=== PATIENT | female | born 2000 | race Caucasian/White ===

== ENCOUNTER 2020-09-14 14:53 | Emergency (ER) | payer OTHER, SELFPAY ==
--- NOTE | 2020-09-14 14:56 | ED.SKABFB ---
HPI - Skin/Abscess/Foreign Bdy General Chief complaint: Wound/Laceration Stated complaint: left toenail off Time Seen by Provider: 09/14/20 14:57 Source: patient and RN notes reviewed History of Present Illness HPI narrative: Patient is a 19-year-old female who presents the urgent care with complaints of left toenail pain. Patient states that her great toenails do not grow the same way and she became self-conscious about them and there for applied acrylic nail to her toes . Patient states that she ripped off the acrylic nail on the left great toe this morning and is now having pain. Patient states that she wants the acrylic taken off the right great toe. Patient denies of any fevers, redness, swelling to the toes. No other acute complaints. No acute distress noted. Patient aware of the plan of care. Some parts of this dictation were generated by voice recognition software and may contain typographical and/or grammatical inaccuracies. Related Data Home Medications Medication Instructions Recorded Confirmed drospirenone-e.estradiol-lm.FA 1 tablet PO DAILY 09/14/20 09/14/20 Allergies Allergy/AdvReac Type Severity Reaction Status Date / Time No Known Allergies Allergy Verified 09/14/20 15:10 Review of Systems Review of Systems: Narrative: CONSTITUTIONAL: Denies fever, chills, or sweats. EYES: Denies visual changes, redness, or discharge. ENT: Denies rhinorrhea, congestion, sore throat, or otalgia. CARDIOVASCULAR: Denies chest pain, palpitations, or edema. RESPIRATORY: Denies cough or dyspnea. GASTROINTESTINAL: Denies abdominal pain, nausea, vomiting, or diarrhea. GENITOURINARY: Denies dysuria or hematuria. SKIN: Reports of acrylic toenails to the left and right great toe MUSCULOSKELETAL: Denies back pain, joint pain, or myalgia. NEUROLOGIC: Denies headache, numbness, or weakness. All other systems reviewed are negative, except as documented in HPI. PMFSH Comments At the time of my signature, I reviewed and agree with the nursing past medical, surgical, social, and family history. There is no relevant family history pertinent to the patient complaint. Exam Narrative: Exam Narrative: GENERAL: This is a well-nourished, well-developed patient, in no apparent distress. HEAD: normocephalic, atraumatic. EYES: PERRL. Sclera clear/white. Vision is grossly intact. EARS: External ears normal NOSE: External nose normal with no obvious nasal discharge, nares without redness, no rhinorrhea. THROAT: Mucous membranes moist NECK: Neck supple CARDIOVASCULAR: Regular rate and rhythm without murmurs, gallops, or rubs. RESPIRATORY: Clear to auscultation. Breath sounds equal bilaterally. No wheezes, rales, or rhonchi. SKIN: Exposed nailbed to the left great toe with mild irritation/erythema to the nailbed. Intact right great toenail acrylic intact without surrounding erythema or edema NEURO: awake, alert, and oriented to person, place and time. There were no obvious focal neurologic abnormalities. EXTREMITIES: No clubbing, cyanosis, or edema. Course Vital Signs Vital signs: Vital Signs Temperature 99.6 F 09/14/20 15:02 Pulse Rate 88 09/14/20 15:02 Respiratory Rate 20 09/14/20 15:02 Blood Pressure 152/86 H 09/14/20 15:02 Pulse Oximetry 100 09/14/20 15:02 Temperature 99.6 F 09/14/20 15:02 Pulse Rate 88 09/14/20 15:02 Respiratory Rate 20 09/14/20 15:02 Blood Pressure 152/86 H 09/14/20 15:02 Pulse Oximetry 100 09/14/20 15:02 Reviewed-patient is informed that they may have pre-hypertension or hypertension based on a blood pressure reading in the department. I recommend the patient call the primary care provider listed on their discharge instructions or a physician of their choice this week to arrange follow-up for further evaluation of possible pre-hypertension or hypertension. MDM - Skin/Abscess/Foreign Bdy MDM Narrative Medical decision making narrative: Advised the patient to soak the right grea
[2020-09-14 15:02] VITALS: BP 152/86; PULSE 88; RESP 20; TEMP 37.6; O2SAT 100
== END 2020-09-14 15:23 | disposition home or self-care (01) ==
PROVIDERS: Emergency Provider Nurse Practitioner Family
DX: S99.922A Unspecified injury of left foot, initial encounter (principal); X58.XXXA Exposure to other specified factors, initial encounter
CPT/HCPCS: 99213; G0463

== ENCOUNTER 2023-06-02 14:24 | Emergency (ER) | payer OTHER, SELFPAY ==
[2023-06-02 14:30] VITALS: BP 148/78; PULSE 78; RESP 14; TEMP 37.1; O2SAT 100
--- NOTE | 2023-06-02 14:46 | ED.URI ---
HPI - URI/Sore Throat General Chief Complaint: Upper Respiratory Infection Stated Complaint: Cough/Chest Congestion Time Seen by Provider: 06/02/23 14:40 Source: patient, RN notes reviewed and old records reviewed Mode of arrival: ambulatory Limitations: no limitations History of Present Illness HPI Narrative: 22 year old female who presents to express care with complaints of cough, some chest tightness, expectoration of mucous since Friday. Patient reports that she though it was allergies initially and started taking OTC allergy medication for her symptoms without improvement. Patient has not taken any cough medication for her symptoms, denies any known fever, no wheezing or any shortness of breath reported. Patient reports that she has coughing fits, does not report cough being worse at night. Patient reports that she thinks she has bronchitis, her friend was recently diagnosed with Bronchitis. MD elicited complaint: cough and other (chest congestion) Onset (ago): day(s) (7 days) Severity: mild Description of mucous: clear Able to tolerate fluids by mouth: Yes Associated symptoms: cough and other (chest tight with cough) Treatments prior to arrival: other (allergy medication) Related Data Home Medications Medication Instructions Recorded Confirmed charlymefol 3 1 tablet PO DAILY 09/14/20 06/02/23 mg-0.02 mg-0.451 mg(24)/0.451 mg(4)tablet Allergies Allergy/AdvReac Type Severity Reaction Status Date / Time No Known Allergies Allergy Verified 09/14/20 15:10 Review of Systems Review of Systems: CONSTITUTIONAL: Denies malaise, chills, sweats, or fever. EYES: Denies visual changes, redness, or discharge. ENT: Reports rhinorrhea, congestion,no sinus pain, no otalgia and no sore throat. CARDIOVASCULAR: Denies chest pain, palpitations, or edema. RESPIRATORY: Reports cough.? Denies dyspnea reports some tightness of chest but denies any shortness of breath or wheezing. GASTROINTESTINAL: Denies abdominal pain, nausea, vomiting, diarrhea SKIN: Denies rash or itching. MUSCULOSKELETAL: Denies myalgia. NEUROLOGIC: Denies headache. All systems reviewed & are unremarkable except as noted in HPI and below COUNTS INCLUDE 234 BEDS AT THE [facility] Social History Social History (Updated 06/02/23 @ 15:31 by Estrella Vides NP) Smoking status: Never smoker Comments At time of signature, agree with nursing past medical, surgical, social and family history. There is no relevant family history pertinent to the presenting complaint Exam Narrative: GENERAL: Well-appearing, well-nourished, and in no acute distress. HEAD: Normocephalic EYES: PERRLA, conjunctivae clear ENT: Nares clear, turbinates edematous and erythematous, clear discharge. Mucous membranes moist. TM pearly meléndez with dull light reflex bilaterally; no tragal tenderness. Oropharynx erythematous without lesions. Tonsils not enlarged and without exudate, no drooling, no hoarseness, no trismus, uvula midline. NECK: Supple. No lymphadenopathy CHEST: Clear to auscultation, breath sounds equal. No wheezing, rhonchi, rales, or stridor. No respiratory distress, speaks in full sentences.SAO2 100% on room air HEART: Regular rate and rhythm. No murmur heard. SKIN: Warm, dry, no rash. NEURO: Alert and oriented x3. PSYCH: Normal mood and affect Course Course Emergency Course: Patient is aware of diagnosis, understands and agrees to treatment plan.? Anticipatory guidance given.? Patient agrees to follow-up as directed and is aware of reasons to seek care at the emergency department. Portions of this record may have been created with voice recognition software Level of Care: Express Care Visit Vital Signs Vital signs: Vital Signs Temperature 37.1 C 06/02/23 14:30 Pulse Rate 78 06/02/23 14:30 Respiratory Rate 14 06/02/23 14:30 Blood Pressure 148/78 H 06/02/23 14:30 Pulse Oximetry 100 06/02/23 14:30 Oxygen Delivery Room Air
== END 2023-06-02 15:04 | disposition home or self-care (01) ==
PROVIDERS: Emergency Provider Registered Nurse; PCP Physician Assistant
DX: J06.9 Acute upper respiratory infection, unspecified (principal)
CPT/HCPCS: 99213; G0463

== ENCOUNTER 2024-10-16 09:15 | Emergency (ER) | payer OTHER, BC, SELFPAY ==
--- OUTSIDE RECORDS SUMMARY | 2024-10-16 09:38 | XMS_ITS | Clinical Summary ---
Author Organization [facility] Address [address] [place] [address] Phone Care Team Providers Care Emergency Department Coordinator Name Role Phone Odalys Crisostomo JOÃO Primary Care Pro vider Allergies No known active allergies Medications Drospirenone-Eth inyl Estradiol 3-0.02 MG Tablet Take 1 Tablet by mouth daily. 09/20/2020 Active levothyroxine (SYNTHROID) 25 MCG Tablet Take 1 Tablet by mouth daily. 90 Tablet 3 06/09/2024 Active Active Problems Problem Noted Date Diagnosed Date Tachycardia 06/14/2024 Overview (06/14/2024): Has kept log; HR normal range at home HR at home is usually 80-90s Anxiety 08/07/2021 Major depressive disorder, r ecurrent episode, mild with anxious distress 08/07/2021 Other specified hypothyroidism 04/25/2021 Elevated cholesterol 04/25/2021 Immunizations Immunization Administration Dates Next Due DTAP VACCINE 10/02/2006, 3,05/20/2001,03/25 DTP Vaccine 01/28/2001 Hepatitis B Vaccine, Pediatric/adolescent 05/20/2001,01/28/2001,2000 Hib Vaccine,unspecified Formulation 04/2002,05/20/2001,03/25/2001,01/28 Inactivated Polio Vaccine 10/02/2006,04/2002,05/20/2001,03/25,01/28/2001 MMR Vaccine 10/02/2006,02/26/2002 Meningococcal Vaccine 10/07/2018,07/27/2015 Pneumococcal Vaccine Peds - 7 Valent 05/20/2002, 11/26/2001,10/02/2001 TDAP Vaccine 09/10/2012 Varicella Vaccine Live 11/26/2001 Family History Relation Name Status Comments Father Alive Mother Alive Social History Tobacco Use Types Packs/Day Years Used Date Smoking Tobacco: Never Smokeless Tobacco: Never Tobacco Cessation:Counseling Given: No Alcohol Use Standard Drinks/Week Comments Yes 0 (1 standard drink = 0.6 oz pur e alcohol) [facility] Utilities Answer Date Recorded In the past 12 months has e electric, gas, oil, or water company threatened to shut off services in your home? No 05/28/2023 Social Connection and Isolation Panel Answer Date Recorded In a typical week, how many times do you talk on the phone with family, friends, or neighbors? Twice a week 05/28/2023 Frequency of Social Gatherings with Friends and Family Not on file 05/28/2023 Attends Hinduism Services Not on file 05/27 Active Member of Clubs or Organizations Not on f ile 05/28/2023 Attends Club or Organization Meetings Not on oliva e 05/28/2023 Marital Status Not on file 05/28/2023 AUDIT-C Answer Date Recorded Q1: How often do you have a drink containing alc ohol? Monthly or less 05/28/2023 Q2: How many drinks containi ng alcohol do you have on a typical day when you are drinking? 1 or 2 05/28/2023 Q3: How often do you have si x or more drinks on one occasion? Less than monthly 05/28/2023 Overall Financial Resource Strain (CARDIA) Answe r Date Recorded How hard is it for you to pa y for the very basics like food, housing, medical care, and heating? Somewhat hard 05/28/2023 PHQ-2 Answer Date Recorded Total Score - Questions 1-9 0 08/2024 [facility] - Occupational Stress Questionnaire Answer Date Recorded Do you feel stress - tense, restless, nervous, or anxious, or unable to sleep at night because your mind is troubled all the time - these days? Only a little 05/28/2023 Exercise Vital Sign Answer Date Recorde d On average, how many days pe r week do you engage in moderate to strenuous exercise (like a brisk walk)? 2 days Minutes of Exercise per Session Not on file 05/28/2023 Hunger Vital Sign Answer Date Recorded Within the past 12 months, y ou worried that your food would run out before you got the money to buy more. Never true 05/28/19 24 Within the past 12 months, t he food you bought just didn't last and you didn't have money to get more. Never true 05/28/2023 PRAPARE - Transportation Answer Date Re corded In the past 12 months, has l ack of transportation kept you from medical appointments or from getting medications? No 04/2023 In the past 12 months, has l ack of transportation kept you from meetings, work, or from getting things needed for daily living? No 05/28/2023 Housing Stability Vital Sign Answer Aashish e Recorded In the last 12 months, was t here a time when you were not able to pay the mortgage or rent on time? No 05/28/2023 In the last 12 months, how many places have you lived? 2 05/28/2023 In the last 12 months, was t here a time when you did not have a steady place to sleep or slept in a intermediate (including now)? No 05/28/2023 Education Answer Date Recorded What is the highest level of school you have completed or the highest degree you have received? 12th grade 05/27/2022 Comments Unknown Sex and Gender Information Value Date Recorded Sex Assigned at Female 10/07/2022 10:46 AM CDT Legal Sex Female 10:52 AM CDT Gender Identity Female 10/07/2022 10:46 AM CDT Sexual Orientation Straight 10/07/2022 10 :46 AM CDT Last Filed Vital Signs Vital Sign Reading Time Taken Comments Blood Pressure 144/104 05/31/2024 11:21 AM CDT Pulse 95 06/14/2024 3:11 PM CDT Temperature 36.4 C (97.5 F) 05/31/2024 11:21 AM CDT Respiratory Rate 12 05/31/2024 11:21 AM CDT Oxygen Saturation 96% 05/31/2024 11:21 AM CDT Inhaled Oxygen Concentration - - Weight 114.8 kg (253 lb) 05/31/2024 11:21 AM CDT Height 170.2 cm (5' 7) 05/28/2023 10:19 AM CDT Body Mass Index 39.63 05/28/2023 10:19 AM CDT Plan of Treatment Health Maintenance Due Date Last Done Comments Hepatitis C Virus (HCV) Screening 2000 Human Papillomavirus (HPV) Immunization (1 - 3-dose series) 11/21/2015 Meningococcal B Immunization (1 of 2 - Standard) 2016 Pap Smear 2021 DTaP/Tdap/Td Immunization (7 - Td or Tdap) 09/10/2022 09/10/2012, 10/02/2006, 02/04/2003, Additional history exists SARS-COV-2 Immunization () 10/26/2023 04/16/2021, 08/16/2020, 07/26/2020 Influenza Immunization (#1) 2024 Respiratory Syncytial Virus (RSV) Immunization (Adult) (1 - 1-dose 75+ series) 11/21/2075 Hepatitis B Immunization Completed 002, 01/28/2001, 2000 Pneumococcal Immunization Combined Aged Out 05/20/2002, 11/26/2001, 10/02/2001 No longer eligible based on patient's age to complete this topic Meningococcal Immunization (ACWY) Completed 10/07/2018, 07/27/2015 Rotavirus Immunization Aged Out No lo nger eligible based on patient's age to complete this topic Goals Goal Patient Goal Type Associated Problems Recent Progress Patient-Stated? Author I want to be able to talk about the things that are going on in my life. Behavioral Health On track(2023 4:25 PM DISTRIBUTION SYSTEMS SERVICEPERSON) Yes Basia Swenson, POSITION CLASSIFICATION SPECIALIST Note: Goal Reviewed with: patient Readiness to change: Ready to change Department associated with goal: [facility] Steps to achieve goal: will attend psychotherapy/counseling monthly and self disclose to have an outlet for distressing thoughts and feelings. will build insight regarding triggers, both internal and external; pt will be able to identify at least two internal and two external triggers to low and anxious moods. Anxiety/Depressio n Behavioral Health On track(2023 4:25 PM DISTRIBUTION SYSTEMS SERVICEPERSON) Basia Phillips LCSW Note: to have reduction of anxiety and depression symptoms. Goal Reviewed with: patient Readiness to change: Ready to change Department associated with goal: [facility] Steps to achieve goal: will attend counseling/psychotherapy sessions at least once monthly, utilizing individual and/or group sessions to express thoughts and feelings. to identify, verbalize and process at least three contributing factors/triggers to anxiety and depression. T o identify at least two lifestyle changes/habits. to put into action, at least one lifestyle change/habit, for one month or longer, to reduce and or cope with anxiety and depression. Insurance [facility] Care Teams Emergency Department Coordinator Relationship Specialty Start Date End Date Odalys Crisostomo PAC PCP - General Physician [employer] 04/18/21
[2024-10-16 09:40] VITALS: BP 148/92; PULSE 88; RESP 20; TEMP 36.6; O2SAT 100
--- NOTE | 2024-10-16 09:40 | ED_ITS ---
HPI - Animal Bite General Chief Complaint: Animal Bite Stated Complaint: scratched, dog bite Time Seen by Provider: 10/16/24 09:49 Source: patient and RN notes reviewed Mode of arrival: ambulatory Limitations: no limitations History of Present Illness HPI narrative: 23-year-old female presents with concern for scratch or bite by a dog. 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 She is not sure if it scratched or bit her, she has an abrasion on her thigh. She has it covered in bandage. She denies drainage. She denies surrounding redness, warmth. complaint: animal bite Related Data Home Medications ?Medication ?Instructions ?Recorded ?Confirmed ?Last Taken ?Type drospiren-e.estrad-l.mefol 3 1 tablet PO DAILY 1 06/02/23 Unknown History mg-0.02 mg-0.451 mg(24)/0.451 mg(4)tablet levothyroxine 25 mcg tablet mcg 10/16/24 Unknown Hist ory Allergies Allergy/AdvReac Type Severity Reaction Status Date / Time No Known Allergies Allergy Verified 09/14/20 15:10 Review of Systems Review of Systems: CONSTITUTIONAL: Denies malaise, chills, sweats, or fever. SKIN: Reports abrasion to her right thigh MUSCULOSKELETAL: Denies muscle skeletal pain NEUROLOGIC: Denies numbness, weakness All systems reviewed & are unremarkable except as noted in HPI and below PMFSH Social History Social History (Updated 06/02/23 @ 15:31 by Estrella Vides NP) Smoking status: Never smoker Comments At time of signature, agree with nursing past medical, surgical, social and family history. There is no relevant family history pertinent to the presenting complaint Exam Narrative: GENERAL: Well-appearing, well-nourished, and in no acute distress. HEAD: Normocephalic, atraumatic. EYES: PERRLA, conjunctivae clear ENT: Mucous membranes moist. NECK: Supple. No lymphadenopathy CHEST: Clear to auscultation. No respiratory distress. HEART: Regular rate and rhythm. SKIN: Warm, dry. Approximately 3 cm x 2 cm abrasion with scab forming noted to the right thigh, surrounding ecchymosis without surrounding erythema, edema or induration. No drainage NEURO: Alert and oriented x3. PSYCH: Normal mood and affect Course Course Emergency Course: Patient is aware of diagnosis, understands and agrees to treatment plan. Anticipatory guidance given. Patient agrees to follow-up as directed and is aware of reasons to seek care at the emergency department. Portions of this record may have been created with voice recognition software Level of Care: Express Care Visit Vital Signs Vital signs: Reviewed. MDM - Animal Bite MDM Narrative Medical decision making narrative: I evaluated this patient in the express care. History is obtained from patient who is an independent historian and physical exam was performed.? Available medical records were reviewed. ? Exam findings and relevant testing show no acute concerns or changes; patient is non-toxic appearing and is in no distress. ? Differential diagnosis and treatment plan were discussed with the patient. Patient agrees with discussion and after shared medical decision making agrees with plan of care. All questions were answered to the patient's satisfaction. Patient is appropriate for outpatient treatment and follow-up. Critical Care Time Critical Care Time Critical Care Time: No Discharge Plan Discharge Clinical Impression: Dog bite Patient Disposition: Home Condition: Stable Instructions: Animal Bite (ED) Additional Instructions: Please follow up with your Primary Care Doctor within 48-72 hours - call for an appointment. Rest and elevate affected area; apply moist heat 3-4 times daily for 10-15 minutes. Take Motrin 600mg every 8 hours with food for pain. If you experience any worsening redness, swelling, streaking (red lines), fever or chills please seek re-evaluation Patient Language: [place] Prescriptions: No Action drospirenone-e.estradiol-lm.FA 3-0.02-0.451 mg (24) (4) Tablet 1 tablet PO DAILY methylprednisolone [Medrol (Tr)] 4 mg tablets,dose pack See Rx Instructions .ROUTE .COMPLEX Qty: 21 0RF Rx Instructions: orally per package directions benzonatate 200 mg capsule 200 mg PO TID PRN (Reason: cough) Qty: 20 0RF Follow-up/Referrals: Kranthi,KRISTY Morrow [Primary Care Provider, Unknown] Stand Alone Forms: Work/School Release IP Time of Disposition: 09:56
== END 2024-10-16 10:01 | disposition home or self-care (01) ==
PROVIDERS: Emergency Provider Nurse Practitioner; PCP Physician Assistant
DX: S70.311A Abrasion, right thigh, initial encounter (principal); W54.0XXA Bitten by dog, initial encounter; E03.9 Hypothyroidism, unspecified
CPT/HCPCS: 99212; G0463